=== PATIENT | female | born 1960 | race Caucasian/White ===

== ENCOUNTER → 2018-05-18 08:34 | Outpatient (CLI) | payer OTHER, SELFPAY ==
--- NOTE | 2018-05-18 08:40 | BI_ITS ---
MAMMOGRAPHY - BILATERAL SCREENING REASON FOR EXAM: Female, 57 years old. Routine annual screening examination. PERTINENT HISTORY: Aunt with breast cancer. TECHNIQUE: Digital bilateral breast jaxson (3D mammographic acquisition) in the CC and MLO projections. 2-D mediolateral oblique (MLO) and craniocaudad (CC) views of both breasts were obtained. CAD: Full Field Digital Mammography with Computer Added Detection was performed. COMPARISON: Comparison is made with prior study dated January 16, 2017 and January 13, 2016. FINDINGS: Breast Composition: The breasts are heterogeneously dense, which may obscure small masses. There are no dominant masses or suspicious calcifications. No other significant abnormalities are identified. There has been no significant change since the prior study. BI/SCREENING MAMM (CAD), BILAT IMPRESSION: Stable bilateral screening mammogram. Yearly follow-up mammogram recommended. (A) ASSESSMENT CATEGORY: BIRADS Category 1: Negative. A letter regarding these results will be sent to the patient by the facility within 30 days. Approximately 10% of breast cancers are not detected by mammography. A normal mammogram should not delay biopsy of a clinically suspicious abnormality. [id number] Electronically Signed: Ernesto Meza MD at 9:17 EST , Service support ,
== END ==
PROVIDERS: Family Provider Internal Medicine; PCP Internal Medicine; Referring Provider Internal Medicine; Visit Provider Internal Medicine
DX: Z12.31 Encounter for screening mammogram for malignant neoplasm of breast (principal)
CPT/HCPCS: 77063; 77067

== ENCOUNTER → 2019-05-27 14:45 | Outpatient (CLI) | payer OTHER, SELFPAY ==
--- NOTE | 2019-05-27 14:48 | BI_ITS ---
MAMMOGRAPHY - BILATERAL SCREENING REASON FOR EXAM: Female, 58 years old. Routine annual screening examination. PERTINENT HISTORY: Aunt with breast cancer. TECHNIQUE: Digital bilateral breast santosh (3D mammographic acquisition) in the CC and MLO projections. 2-D mediolateral oblique (MLO) and craniocaudad (CC) views of both breasts were obtained. CAD: Full Field Digital Mammography with Computer Added Detection was performed. COMPARISON: Comparison is made with prior examination dated May 18, 2018 and January 16, 2017. FINDINGS: Breast Composition: The breasts are extremely dense, which lowers the sensitivity of mammography. There are no dominant masses or suspicious calcifications. No other significant abnormalities are identified. There has been no significant change since the prior study. BI/SCREEN MAMM (CAD) W/SANTOSH BILAT IMPRESSION: Stable bilateral screening mammogram. Yearly follow-up mammogram recommended. (A) ASSESSMENT CATEGORY: BIRADS Category 1: Negative. A letter regarding these results will be sent to the patient by the facility within 30 days. Approximately 10% of breast cancers are not detected by mammography. A normal mammogram should not delay biopsy of a clinically suspicious abnormality. [id number] Electronically Signed: Ernesto Meza, at 15:51 EST , Service support ,
--- NOTE | 2019-05-27 14:53 | BD_ITS ---
STUDY: DUAL ENERGY X-RAY ABSORPTIOMETRY / DXA REASON FOR EXAM: Female, 58 years old. OPTOMETRIC TECHNICIAN -- HX OF SMOKING -- TAKES CALCIUM -- DOES MODERATE AMOUNT OF EXERCISE -- FAMILY HX OF OSTEO- MOTHER -- PAULINE OF 0.5 INCH TECHNIQUE: Bone Mineral Density (BMD) measurements of lumbar spine and bilateral hips were obtained. COMPARISON: Comparison is made with prior examination dated November 10, 2014. FINDINGS: Lumbar Spine (L1-L4): g/cm2 (1.068) / T-score (-0.9) / Z-score (0.3) Findings are suggestive of normal bone density with a low fracture risk. Left Femur Total: g/cm2 (0.804) / T-score (-1.6) / Z-score (-0.7) Left Femoral Neck: g/cm2 (0.892) / T-score (-1.0) / Z-score (0.2) Right Femur Total: g/cm2 (0.860) / T-score (-1.2) / Z-score (-0.2) Right Femoral Neck: g/cm2 (0.907) / T-score (-0.9) / Z-score (0.3) The T-Scores on the most recent prior examination were: Lumbar Spine (L1-L4): There has been worsening of bone density since the previous examination. Left Femur Total: which represents a worsening of 3.8%. Right Femur Total: which represents a worsening of 1.1%. BD/Dexa Bone Density Study IMPRESSION: The patient is considered osteopenic as outlined below according to World Santana Organization (WHO) criteria with a moderate fracture risk. There has been worsening of bone density since the previous examination. Reference Information: The T-score is the number of standard deviations above or below the standard which is normal for young adults at their peak bone mineral density. The World Health Organization (WHO) interprets the T-scores as follows: Above -1 Normal bone density Between -1 and -2.5 Osteopenia Equal to / or below -2.5 Osteoporosis As a practical clinical guideline, osteopenia may be graded as follows: Mild -1 through -1.5 Moderate -1.6 through -2.0 Severe -2.1 through -2.4 The Z-score is the number of standard deviations above or below age-matched controls. A Z-score of less than -1.5 would be considered abnormal. References: 1. NIH Osteoporosis and Related Bone Diseases http://www.osteo.org 2. International Society for Clinical Densitometry http://www.iscd.org 3. National Osteoporosis Foundation http://www.nof.org Electronically Signed: Ernesto Meza, at 10:46 EST , Service support ,
== END ==
PROVIDERS: Family Provider Internal Medicine; PCP Internal Medicine; Referring Provider Internal Medicine; Visit Provider Internal Medicine
DX: Z12.31 Encounter for screening mammogram for malignant neoplasm of breast (principal); M85.80 Other specified disorders of bone density and structure, unspecified site
CPT/HCPCS: 77063; 77067; 77080

== ENCOUNTER → 2020-05-28 14:40 | Outpatient (CLI) | payer OTHER, SELFPAY ==
--- NOTE | 2020-05-28 14:50 | BI_ITS ---
MAMMOGRAPHY - BILATERAL SCREENING REASON FOR EXAM: Female, 59 years old. Routine annual screening examination. PERTINENT HISTORY: Aunt with breast cancer. TECHNIQUE: Digital bilateral breast santosh (3D mammographic acquisition) in the CC and MLO projections. 2-D mediolateral oblique (MLO) and craniocaudad (CC) views of both breasts were obtained. CAD: Full Field Digital Mammography with Computer Added Detection was performed. COMPARISON: Comparison is made with prior study dated 05/27/2019 and 05/18/2018. FINDINGS: Breast Composition: The breasts are extremely dense, which lowers the sensitivity of mammography. There are no dominant masses or suspicious calcifications. No other significant abnormalities are identified. There has been no significant change since the prior study. BI/SCRN MAMM (CAD)W/SANTOSH BILAT IMPRESSION: Stable bilateral screening mammogram. Yearly follow-up mammogram recommended. (A) ASSESSMENT CATEGORY: BIRADS Category 1: Negative. A letter regarding these results will be sent to the patient by the facility within 30 days. Approximately 10% of breast cancers are not detected by mammography. A normal mammogram should not delay biopsy of a clinically suspicious abnormality. [id number] Electronically Signed: Ernesto Meza MD at 15:44 EST , Service support ,
== END ==
PROVIDERS: PCP Internal Medicine; Referring Provider Internal Medicine; Visit Provider Internal Medicine
DX: Z12.31 Encounter for screening mammogram for malignant neoplasm of breast (principal)
CPT/HCPCS: 77063; 77067

== ENCOUNTER → 2021-09-27 | Outpatient (CLI) | payer OTHER, SELFPAY ==
--- NOTE | 2021-09-27 12:53 | BI_ITS ---
MAMMOGRAPHY - BILATERAL SCREENING REASON FOR EXAM: Female, 60 years old. Routine annual screening examination. PERTINENT HISTORY: Aunt with breast cancer. TECHNIQUE: Digital bilateral breast santosh (3D mammographic acquisition) in the CC and MLO projections. 2-D mediolateral oblique (MLO) and craniocaudad (CC) views of both breasts were obtained. CAD: Full Field Digital Mammography with Computer Added Detection was performed. COMPARISON: Comparison Mammogram study is dated 05/28/2020, 05/27/2019, 05/18/2018, 01/16/2017. FINDINGS: Breast Composition: The breasts are extremely dense, which lowers the sensitivity of mammography. There are no dominant masses or suspicious calcifications. No other significant abnormalities are identified. There has been no significant change since the prior study. BI/SCRN MAMM (CAD)W/SANTOSH BILAT IMPRESSION: Stable bilateral screening mammogram. Yearly follow-up mammogram recommended. (A) ASSESSMENT CATEGORY: BIRADS Category 1: Negative. A letter regarding these results will be sent to the patient by the facility within 30 days. Approximately 10% of breast cancers are not detected by mammography. A normal mammogram should not delay biopsy of a clinically suspicious abnormality. [id number] Electronically Signed: Rudy Redd, at 16:57 EDT ,
--- NOTE | 2021-09-27 12:58 | BD_ITS ---
STUDY: DUAL ENERGY X-RAY ABSORPTIOMETRY / DXA REASON FOR EXAM: Female, 60 years old. M85.89. Patient is postmenopausal. TECHNIQUE: Bone Mineral Density (BMD) measurements of lumbar spine and bilateral hips were obtained. COMPARISON: Comparison is made with prior examination of 05/27/2019. FINDINGS: Lumbar Spine (L1-L4): g/cm2 (0.919) / T-score (-1.2) / Z-score (0.4) Findings are suggestive of osteopenia with a low fracture risk. Left Femur Total: g/cm2 (0.751) / T-score (-1.6) / Z-score (-0.5) Left Femoral Neck: g/cm2 (0.649) / T-score (-1.8) / Z-score (-0.4) Right Femur Total: g/cm2 (0.791) / T-score (-1.2) / Z-score (-0.1) Right Femoral Neck: g/cm2 (0.665) / T-score (-1.7) / Z-score (-0.3) The T-Scores on the most recent prior examination were: Lumbar Spine (L1-L4): There has been worsening of bone density since the previous examination. Left Femur Total: which represents an improvement of 1%. Right Femur Total: which represents a worsening of 0.8%. BD/Dexa Bone Density Study IMPRESSION: The patient is considered osteopenic as outlined below according to World Santana Organization (WHO) criteria with a moderate fracture risk. There has been worsening of bone density since the previous examination. Reference Information: The T-score is the number of standard deviations above or below the standard which is normal for young adults at their peak bone mineral density. The World Health Organization (WHO) interprets the T-scores as follows: Above -1 Normal bone density Between -1 and -2.5 Osteopenia Equal to / or below -2.5 Osteoporosis As a practical clinical guideline, osteopenia may be graded as follows: Mild -1 through -1.5 Moderate -1.6 through -2.0 Severe -2.1 through -2.4 The Z-score is the number of standard deviations above or below age-matched controls. A Z-score of less than -1.5 would be considered abnormal. References: 1. NIH Osteoporosis and Related Bone Diseases www osteo.org 2. International Society for Clinical Densitometry www iscd.org 3. National Osteoporosis Foundation www nof.org Electronically Signed: Ernesto Meza MD at 13:57 EDT ,
== END | disposition home or self-care (01) ==
LOC: OPBD 12:51
PROVIDERS: PCP Internal Medicine; Referring Provider Internal Medicine; Visit Provider Internal Medicine
DX: M85.80 Other specified disorders of bone density and structure, unspecified site (principal); Z12.31 Encounter for screening mammogram for malignant neoplasm of breast
CPT/HCPCS: 77063; 77067; 77080

== ENCOUNTER → 2022-09-14 | Outpatient (CLI) | payer OTHER, SELFPAY | END | disposition home or self-care (01) | LOC: LABSPEC 13:22 | PROVIDERS: PCP Internal Medicine; Visit Provider Internal Medicine | DX: R19.7 Diarrhea, unspecified (principal) | CPT/HCPCS: 82274; 83630; 87177; 87209; 87493; 87506 ==

== ENCOUNTER → 2023-02-14 | Outpatient (CLI) | payer OTHER, SELFPAY ==
--- NOTE | 2023-02-14 09:56 | BI_ITS ---
MAMMOGRAPHY - BILATERAL SCREENING REASON FOR EXAM: Female, 62 years old. Routine annual screening examination. PERTINENT HISTORY: Aunt with breast cancer. TECHNIQUE: Digital bilateral breast santosh (3D mammographic acquisition) in the CC and MLO projections. 2-D mediolateral oblique (MLO) and craniocaudad (CC) views of both breasts were obtained. CAD: Full Field Digital Mammography with Computer Added Detection was performed. COMPARISON: Comparison is made with prior study dated September 27, 2021 and May 28, 2020. FINDINGS: Breast Composition: The breasts are extremely dense, which lowers the sensitivity of mammography. There are no dominant masses or suspicious calcifications. No other significant abnormalities are identified. There has been no significant change since the prior study. BI/SCRN MAMM (CAD)W/SANTOSH BILAT IMPRESSION: Stable bilateral screening mammogram. Yearly follow-up mammogram recommended. (A) ASSESSMENT CATEGORY: BIRADS Category 1: Negative. A letter regarding these results will be sent to the patient by the facility within 30 days. Approximately 10% of breast cancers are not detected by mammography. A normal mammogram should not delay biopsy of a clinically suspicious abnormality. [id number] Electronically Signed: Ernesto Meza MD at 12:48 EST ,
== END | disposition home or self-care (01) ==
LOC: OPBI 09:55
PROVIDERS: PCP Internal Medicine; Referring Provider Internal Medicine; Visit Provider Internal Medicine
DX: Z12.31 Encounter for screening mammogram for malignant neoplasm of breast (principal)
CPT/HCPCS: 77063; 77067

== ENCOUNTER 2023-08-07 12:00 | Outpatient (RCR) | payer OTHER, SELFPAY ==
--- NOTE | 2023-07-12 15:30 | HP.PTEVAL ---
Patient's Visit Information Visit Information Visit Information: SUGEY GILLILAND is a 62 year old F referred to Physical Therapy by Dr. 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 Date of Evaluation: 07/12/23 Physical Therapist: Marzena Pope, PT, Cert MDT Visit Plan Frequency: 1-2x /Week Duration: 4-6 Weeks Plan: L KNEE US AT 1.3 W/CM2 X 8 MIN. HP/CP NEEDED FOR PAIN AND INFLAMMATION REDUCTION. VMO STRENGTHENING TO IMPROVE PATELLAR TRACKING. QUAD STRETCHING AND MANUAL THERAPY TO IMPROVE KNEE FLEXION ROM. CORE AND HIP STRENGTHENING. STAIR TRAINING. EMPHASIZE HEP WITH PICTURES. Subjective Subjective: Work/Leisure: UNEMPLOYEED. 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 Lives in 2 story home. HOBBIES: GARDENING. Disability: NO Present symptoms: L KNEE PAIN - ON THE OUT SIDE, UNDER, IN THE BACK AND THROUGHT THE WHOLE KNEE JOINT. A LITTLE CLICK OR POP IN FRONT OF KNEE CAP WHEN STRAIGHTENING KNEE WHEN IT'S PAINFUL. NO SWELLING. NO NUMBNESS OR TINGLING. NO DISLOCATING OF KNEE CAP. Present since: APPROX APR 2023 Pain Scale: WORST 4/10, LEAST 0/10 Currently: 0/10 Is it getting better, worse or staying the same: STAYING THE SAME Commenced as a result of: NO APPARENT REASON Symptoms at onset: TIGHTNESS ALONG THE OUTSIDE OF THIGH NEAR THE KNEE AND THEN SORENESS IN THE KNEE. Worse: WALKING SEVERAL MILES AT A TIME, BEGINNER [employer] CLASS AT [employer]LEX, TRYING TO BEND IT, STEPS - DOWN IS WORSE THAN UP, GETTING IN/OUT OF CAR. Better: SITTING WITH LEG EXTENDED STRAIGHT. Disturbed sleep: VERY occasionally. Previous history/Previous treatment: UNREMARKABLE. Treatment this episode: NONE. PT CONSULT. NO OTHER CONSULTS. Gait: I'M PROTECTIVE OF IT AND SOMETIMES MY GAIT IS NOT EVEN. I HOLD THE BANESTER COMING DOWN STEPS SO I DON'T OVER BEND IT. Accidents: NO Unexplained weight loss: NO Imaging: L KNEE X-RAY 07/09/23 - PATIENT REPORTS SHE WAS TOLD SHE HAS SOME ARTHRITIS AND THE KNEE CAP IS MINIMALLY OUT OF PLACE. [facility] EMR: FINDINGS: Normal visualized distal femur. Normal visualized proximal tibia and fibula. Normal proximal tibiofibular articulation. There is no demonstrated fracture. There is minimal degenerative arthrosis of the medial femorotibial compartment. There is minimal degenerative arthrosis of the lateral femorotibial compartment. There is minimal degenerative arthrosis of the patellofemoral articulation. There is a small volume joint effusion. The soft tissue structures are unremarkable. RAD/Knee 3 Views IMPRESSION: Minimal tricompartment degenerative arthrosis. Small joint effusion. No demonstrated fracture. PMH/Recent major surgery: ACHILLES TENDON RELEASE LLE MANY YEARS AGO R LE BUT STATES SHE DID NOT REGAIN FULL STRENGTH. Objective Objective: Sitting/Standing Posture: L ILIAC CREST HIGHER THAN R. IN SITTING L LE RESTS IN ER. Active Correction of posture: NE. ABLE TO CORRECT. Other Observations: LLE ER AND FOOT SLAP. PATIENT IS ABLE TO CORRECT FOOT SLAP WHEN SHE ACTIVELY TRIES. NO AD OR LOB. Sensory deficit: BETO LE LIGHT TOUCH SENSATON GROSSLY INTACT AND SYMMETRICAL ROM deficit: DECREASED LEFT KNEE FLEXION - 108 DEG IN LYING WITH A HEEL SLIDE WITH ERP. FULL KNEE EXTENSION. R KNEE FLEXION = 145 DEG. DECREASED BETO HIP IR. 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 Motor deficit: R LE: HIP 4+/5, KNEE 5/5, ANKLE 5/5 IN AVAILABLE ROM. LLE: HIP 4/5, KNEE EXT 5/5, KNEE FLEX 4/5 MID-RANGE, ANKLE 5/5 (UNSURE OF WHAT IS CAUSING FOOT SLAP DURING GAIT). Dural Signs: NEGATIVE BETO LE'S. Lumbar mvmt loss: flex - NIL ext - MIN R SG - MIN L SG - MOD PATIENT DENIES PAIN WITH LUMBAR ROM TESTING ALL PLANES. Core strength: FAIR Palpation: NO ACUTE L KNEE REGION TENDERNESS BUT THERE IS MILD SWELLING. SEE CIRCUMFERENCE MEASUREMENTS BELOW. PATIENT HAS R LE ATROPHY FROM ACHILLES PROCEDURE SO R LE IS NOT USED FOR COMPARISON. CIRCUMFERENCE MEASUREMENTS: PATELLA - 39.5 CM 6 PROX - 48.5 CM 6 DIST - 36.5 CM OTHER: CONSISTENT L KNEE LITTLE CLICK MOVING INTO EXTENSION FROM FLEXION AT ABOUT 30 DEG WITHOUT SIGNIFICANT C/O PAIN ASSOCIATED. MILD L LATERAL PATELLAR TRACKING. Special Tests L Knee Chuy - Meniscus: Negative L Knee Apley - Meniscus: Negative L Knee Peterson - ACL: Negative L Knee Anterior Drawer - ACL: Negative L Knee Valgus - MCL: Negative L Knee Varus - LCL: Negative L Knee Patellar Apprehension - PFS: Negative L Knee Patellar Grind - PFS: Positive Balance/Special Test Scores Lower Extremity Functional Score: 58 Goals Goal 1:: ABOLISH L KNEE PAIN, SWELLING AND TENDERNESS. Goal Time Frame: 4-6 Weeks Goal 2:: RESTORE FULL ROM OF L KNEE FLEXION TO EASE ADL'S Goal Time Frame: 4-6 Weeks Goal 3:: RESTORE FULL STRENGTH OF LLE TO ALLOW FOR RETURN TO PLOF Goal Time Frame: 4-6 Weeks Goal 4:: PATIENT WILL BE ABLE TO GO UP AND DOWN STEPS RECIPROCALLY WITH ONE HR WITHOUT LIMITATION. Goal Time Frame: 4-6 Weeks Goal 5:: INDEP HEP Goal Time Frame: 4-6 Weeks Rehabilitation Potential Physical Therapy Diagnosis: L LATERAL PATELLAR TRACKING AND KNEE CLICKING. L QUAD AND HS WEAKNESS AND DECREASED KNEE FLEXION ROM. LIMITED NORMAL FUNCTION. Rehabilitation Potential: Good Anticipated Interventions Patient/Client Instruction: Educate patient on: Condition, Plan of Care and Risk Factors For the Purpose of:: To improve self management Therapeutic Exercise to Include: Strength training and Flexibilty training For the Purpose of:: To decrease pain, To improve muscle performance and motor function, To increase tolerance to activity/condition/position, To improve ability of physical actions for home/community/work/leisure, To decrease soft tissue restriction and To increase flexibility/ROM Manual Therapy Techniques to Include: Trigger point massage, Mobilization, Passive ROM and Soft tissue mobilization For the Purpose of:: To decrease soft tissue restriction and To increase flexibility/ROM Cryotherapy (ice pack, ice massage): Yes Thermo therapy (hot pack): Yes Ultrasound (thermal/non thermal): Yes For the Purpose of:: To decrease pain, To decrease swelling/inflammation and To improve nutrient delivery to tissue Text: Thank you for the opportunity to evaluate your patient. For Medicare and Medicare HMO plans, please review the plan of care and approve it. It will need to be FAXED BACK to us at [phone] for Medicare purposes. For Medicare only, by signing this I certify the plan of care. Please let me know if there are questions or concerns regarding this plan of care. Physician Signature: Date:
--- NOTE | 2023-08-07 13:04 | HP.PTDCSUM ---
Discharge Summary D/C summary: It has been my pleasure to treat SUGEY GILLILAND referred by Dr. 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 Discharge Date: 08/07/23 Please see the following information for a summary of their discharge status. Subjective Subjective: I FEEL MUCH STRONGER FROM THE EX'S AND IT WAS LIKE MAGICAL - LOOK HOW MUCH I CAN BEND IT. PATIENT REPORTS SHE FEELS GOOD ABOUT THE PROGRESS SHE HAS MADE AND FEELS SHE CAN CONTINUE ON HER OWN AT THIS POINT. Overall Improvement % Improvement: 90 Objective Objective/Function: PATIENT WAS SEEN TODAY FOR RE-ASSESSMENT OF PROGRESS TOWARD THE SET PT GOALS AND THE NEED FOR FURTHER PHYSICAL THERAPY VS READINESS FOR DISCHARGE. THIS PATIENT HAS MADE GOOD PROGRESS WITH PT IN A RELATIVELY SHORT PERIOD OF TIME. SHE CONTINUES TO HAVE SOME LOSS OF FLEXION ROM BUT IS INDEP WITH A HEP. INSTRUCTED PATIENT TO RETURN TO PCP FOR RE-ASSESSMENT IF SHE DOES NOT REGAIN FULL ROM AND BECOME SYMPTOM FREE. PATIENT IS AGREEABLE. UPON EXAM TODAY: STEPS: PATIENT IS ABLE TO GO UP AND DOWN STEPS reciprocally with a handrail. AROM: 0-131 DEG FLEX (compared to 145 deg R). NO CLICKING OR POPPING WITH ROM TESTING. MMT: 5/5 BETO LE'S. CIRCUMFERENCE MEASUREMENTS: PATELLA - 39 CM 6 PROX - 48.5 CM 6 DIST - 37 CM Goals Goal 1:: ABOLISH L KNEE PAIN, SWELLING AND TENDERNESS. Goal Progress: Goal Met Goal 2:: RESTORE FULL ROM OF L KNEE FLEXION TO EASE ADL'S Goal Progress: Progressing Goal 3:: RESTORE FULL STRENGTH OF LLE TO ALLOW FOR RETURN TO PLOF Goal Progress: Progressing Goal 4:: PATIENT WILL BE ABLE TO GO UP AND DOWN STEPS RECIPROCALLY WITH ONE HR WITHOUT LIMITATION. Goal Progress: Goal Met Goal 5:: INDEP HEP Goal Progress: Goal Met Plan Plan: D/C TO HEP AND PCP FOLLOW UP NEEDED. PATIENT AGREEABLE. D/C Information d/c sentence: If there are questions or concerns regarding this patient's physical therapy, please feel free to call me at [phone]. Thank you for the referral of this patient. Sincerely, Marzena Pope, PT, Cert MDT Balance/Gait/Functional tests Balance/Special Test Scores Lower Extremity Functional Score: 70 Improvement % Improvement: 90
== END 2023-08-07 13:44 | disposition home or self-care (01) ==
LOC: PT 12:00
PROVIDERS: PCP Internal Medicine; Referring Provider Internal Medicine; Visit Provider Internal Medicine
DX: M22.92 Unspecified disorder of patella, left knee (principal)
CPT/HCPCS: 97035; 97110; 97162; 97164; 97530

== ENCOUNTER → 2024-02-28 | Outpatient (CLI) | payer MEDICARE, OTHER, SELFPAY ==
--- NOTE | 2024-02-28 14:55 | BI_ITS ---
MAMMOGRAPHY - BILATERAL SCREENING REASON FOR EXAM: Female, 63 years old. Routine annual screening examination. PERTINENT HISTORY: Aunt with breast cancer. TECHNIQUE: Digital bilateral breast santosh (3D mammographic acquisition) in the CC and MLO projections. 2-D mediolateral oblique (MLO) and craniocaudad (CC) views of both breasts were obtained. CAD: Full Field Digital Mammography with Computer Added Detection was performed. COMPARISON: Comparison is made with prior study dated February 14, 2023 and September 27, 2021. FINDINGS: Breast Composition: The breasts are extremely dense, which lowers the sensitivity of mammography. There are no dominant masses or suspicious calcifications. No other significant abnormalities are identified. There has been no significant change since the prior study. BI/SCRN MAMM (CAD)W/SANTOSH BILAT IMPRESSION: Stable bilateral screening mammogram. Yearly follow-up mammogram recommended. (A) ASSESSMENT CATEGORY: BIRADS Category 1: Negative. A letter regarding these results will be sent to the patient by the facility within 30 days. Approximately 10% of breast cancers are not detected by mammography. A normal mammogram should not delay biopsy of a clinically suspicious abnormality. [id number] Electronically Signed: Ernesto Meza MD at 8:03 EST ,
--- NOTE | 2024-02-28 14:59 | BD_ITS ---
STUDY: DUAL ENERGY X-RAY ABSORPTIOMETRY / DXA REASON FOR EXAM: Female, 63 years old. [id number] -- Postmenopausal status TECHNIQUE: Bone Mineral Density (BMD) measurements of lumbar spine and bilateral hips were obtained. COMPARISON: Comparison is made with prior study dated September 27, 2021. FINDINGS: Lumbar Spine (L1-L4): g/cm2 (0.890) / T-score (-1.4) / Z-score (0.4) Findings are suggestive of osteopenia with a low fracture risk. Left Femur Total: g/cm2 (0.743) / T-score (-1.6) / Z-score (-0.4) Left Femoral Neck: g/cm2 (0.634) / T-score (-1.9) / Z-score (-0.4) Right Femur Total: g/cm2 (0.789) / T-score (-1.3) / Z-score (0.0) Right Femoral Neck: g/cm2 (0.621) / T-score (-2.1) / Z-score (-0.5) The T-Scores on the most recent prior examination were: Lumbar Spine (L1-L4): There has been worsening of bone density since the previous examination. Left Femur Total: which represents a worsening of 1.1%. Right Femur Total: which represents a worsening of 0.3%. BD/Dexa Bone Density Study IMPRESSION: The patient is considered osteopenic as outlined below according to World Santana Organization (WHO) criteria with a high fracture risk. There has been worsening of bone density since the previous examination. Reference Information: The T-score is the number of standard deviations above or below the standard which is normal for young adults at their peak bone mineral density. The World Health Organization (WHO) interprets the T-scores as follows: Above -1 Normal bone density Between -1 and -2.5 Osteopenia Equal to / or below -2.5 Osteoporosis As a practical clinical guideline, osteopenia may be graded as follows: Mild -1 through -1.5 Moderate -1.6 through -2.0 Severe -2.1 through -2.4 The Z-score is the number of standard deviations above or below age-matched controls. A Z-score of less than -1.5 would be considered abnormal. References: 1. NIH Osteoporosis and Related Bone Diseases www osteo.org 2. International Society for Clinical Densitometry www iscd.org 3. National Osteoporosis Foundation www nof.org Electronically Signed: Ernesto Meza MD at 15:36 EST ,
== END | disposition home or self-care (01) ==
LOC: OPBD 14:55
PROVIDERS: PCP Internal Medicine; Referring Provider Internal Medicine; Visit Provider Internal Medicine
DX: Z12.31 Encounter for screening mammogram for malignant neoplasm of breast (principal); Z78.0 Asymptomatic menopausal state
CPT/HCPCS: 77063; 77067; 77080

== ENCOUNTER → 2025-02-10 | Outpatient (CLI) | payer MEDICARE, OTHER, SELFPAY ==
--- NOTE | 2025-02-10 06:49 | MRI_ITS ---
PROCEDURE: MRI/Lower Ext Joint Only (Routine)
== END | disposition home or self-care (01) ==
LOC: OPMRI 06:57
PROVIDERS: PCP Internal Medicine; Referring Provider Nurse Practitioner Family; Visit Provider Nurse Practitioner Family
DX: R22.41 Localized swelling, mass and lump, right lower limb (principal)
CPT/HCPCS: 73721

== ENCOUNTER → 2025-03-02 | Outpatient (CLI) | payer MEDICARE, OTHER, SELFPAY ==
--- NOTE | 2025-03-02 12:04 | BI_ITS ---
EXAM: SCRN MAMM (CAD)W/SANTOSH BILAT DATE: 03/02/2025 CLINICAL HISTORY: F, Age 64 y/o , SCRN MAMM (CAD)W/SANTOSH BILAT TECHNIQUE: Procedure Code: [id number] Modality: MG Procedure: SCRN MAMM (CAD)W/SANTOSH BILAT COMPARISON: Prior exam(s) were compared FINDINGS: TISSUE DENSITY: The breasts are heterogeneously dense, which may obscure small masses. Bilateral Breast Mammographic Findings: No significant masses, calcifications or other abnormalities are identified. BI/SCRN MAMM (CAD)W/SANTOSH BILAT IMPRESSION: No mammographic evidence of malignancy in either breast. OVERALL FINAL ASSESSMENT BI-RADS 1: NEGATIVE. RECOMMENDATION: Routine annual follow-up in 1 Year Additional Recommendation none A letter with findings and recommendations will be mailed to the patient. Reading Location: [id number]
--- NOTE | 2025-03-02 12:27 | MRI_ITS ---
PROCEDURE: LOWER EXT/JT ONLY/W CONTRAST 03/02/2025 REASON FOR EXAM: NEED CONTRASTED MRI Painless lump anterior right knee. TECHNIQUE: Procedure Code: [id number] Modality: MR Procedure: MRI of the right knee area without and with contrast. CONTRAST: Clariscan VOLUME: 15 mL intravenous. COMPARISON: Right knee study of 12/29/2024 and right knee MRI without contrast of 02/10/2025.. FINDINGS: A skin marker is seen overlying the inferomedial patella. Subcutaneous edema is present, but apparently the small fluid collection in the prepatellar location is diminished or resolved since the study of 02/10/2025. Postcontrast images do not show significant enhancement of the area. A prominent intrasubstance tear of the posterior horn of the medial meniscus is now seen, without definite surfacing noted. The increased conspicuity compared with the prior study may simply be due to differences in technique. Questionable intrasubstance tear of the posterior horn of the lateral meniscus, as well. Stable degenerative changes are otherwise noted. Cruciate and collateral ligaments appear intact. Visualized extensor tendons appear intact. No significant joint effusion is noted. No acute osseous signal change is seen. MRI/Lower Ext/Jt Only/W Contrast IMPRESSION: 1. Prominent intrasubstance tear of the posterior horn of the medial meniscus, with questionable posterior horn intrasubstance tear of the lateral meniscus, as well. 2. Interval decrease in the prepatellar process compared with the earlier study of 02/10/2025; no significant residual fluid collection is seen. Reading Location: [id number]
== END | disposition home or self-care (01) ==
LOC: OPBI 12:02
PROVIDERS: PCP Internal Medicine; Referring Provider Internal Medicine; Visit Provider Internal Medicine
DX: Z12.31 Encounter for screening mammogram for malignant neoplasm of breast (principal); R22.41 Localized swelling, mass and lump, right lower limb
CPT/HCPCS: 73722; 77063; 77067; A9575